=== PATIENT | male | born 1930 | race Caucasian/White ===

== ENCOUNTER 2017-11-22 06:00 | Day surgery (SDC) | payer OTHER ==
[~2017-11-22] VITALS: Ht 165.1 cm; Wt 68.9 kg
[2017-11-22] MEDS ORDERED: CEFAZOLIN SOD 1 GM/ ISO 50 ML PREMIX IV ONE (07:00)
[2017-11-22] MEDS ORDERED: BUPIVACAINE /PF 0.25% 30 ML VIAL INJ ONE ×2 (07:40→08:20)
[2017-11-22] MEDS ORDERED: SEVOFLURANE 15 MIN GAS INH ONE (07:40)
[2017-11-22] MEDS ORDERED: fentaNYL CITRATE/PF 100 MCG/2 ML AMP IVP ONE (07:40)
[2017-11-22] MEDS ORDERED: MIDAZOLAM HCL 5 MG/5 ML VIAL IVP ONE (07:40)
[2017-11-22] MEDS ORDERED: 0.45% NACL 1,000 ML BAG IV ONE (07:40)
[2017-11-22] MEDS ORDERED: PROPOFOL 200MG/ 20ML VIAL (DIPRIVAN) IV ONE (07:40)
[2017-11-22] MEDS ORDERED: POLYMYXIN 500,000/BACIT.10,000 UNITS in NS IRR 1 L IR ONE (07:56)
[2017-11-22] MEDS ORDERED: fentaNYL CITRATE/PF 100 MCG/2 ML AMP IVP PRN ×2 (08:00)
[2017-11-22] MEDS ORDERED: ONDANSETRON HCL 4 MG/2 ML VIAL IVP PRN (08:00)
[2017-11-22] MEDS ORDERED: D5/0.45 NS 1,000 ML IV SCH (08:57)
[2017-11-22] MEDS ORDERED: HYDROmorphone 1 MG INJ. 1 MG/ML AMPUL IVP PRN (09:00)
[2017-11-22] MEDS ORDERED: HYDROcodone/ACETAMIN 5-325 MG TAB (NORCO/ VICODIN) PO PRN ×2 (09:00)
[2017-11-22 10:12] VITALS: BP_SYST 131
== END 2017-11-22 11:40 | disposition home or self-care (01) ==
LOC: SDS 06:00 → SMU 06:00 → SDS 11:40
PROVIDERS: ATTEND Colon & Rectal Surgery
DX: K40.90 Unilateral inguinal hernia, without obstruction or gangrene, not specified as recurrent (principal); E78.5 Hyperlipidemia, unspecified; E03.9 Hypothyroidism, unspecified; K21.9 Gastro-esophageal reflux disease without esophagitis; I77.810 Thoracic aortic ectasia; I70.0 Atherosclerosis of aorta; I48.2 Chronic atrial fibrillation; I25.10 Atherosclerotic heart disease of native coronary artery without angina pectoris; Z87.891 Personal history of nicotine dependence; Z79.899 Other long term (current) drug therapy; I12.9 Hypertensive chronic kidney disease with stage 1 through stage 4 chronic kidney disease, or unspecified chronic kidney disease; N18.3 Chronic kidney disease, stage 3 (moderate)
CPT/HCPCS: 49505; C1781; J0690; J2250; J2704; J3010; J3490; J7120